=== PATIENT | female | born 1990 ===

== ENCOUNTER 2022-07-30 08:25 | Outpatient (CLI) | payer OTHER | END 2022-07-30 09:38 | disposition home or self-care (01) | LOC: PRENATAL 08:25 | PROVIDERS: ATTEND Obstetrics & Gynecology Maternal & Fetal Medicine | DX: O36.80X0 Pregnancy with inconclusive fetal viability, not applicable or unspecified (principal); O34.10 Maternal care for benign tumor of corpus uteri, unspecified trimester; Z3A.13 13 weeks gestation of pregnancy ==

== ENCOUNTER 2022-09-17 08:05 | Outpatient (CLI) | payer OTHER | END 2022-09-17 08:57 | disposition home or self-care (01) | LOC: PRENATAL 08:05 | PROVIDERS: ATTEND Obstetrics & Gynecology Maternal & Fetal Medicine | DX: O35.3XX0 Maternal care for (suspected) damage to fetus from viral disease in mother, not applicable or unspecified (principal); Z3A.20 20 weeks gestation of pregnancy ==

== ENCOUNTER 2023-01-18 20:55 | Outpatient (CLI) | payer OTHER | END 2023-01-18 22:05 | disposition home or self-care (01) | LOC: NST 20:55 | PROVIDERS: ATTEND Obstetrics & Gynecology | DX: Z34.83 Encounter for supervision of other normal pregnancy, third trimester (principal) ==

== ENCOUNTER 2023-01-26 03:16 | Inpatient (IN) | payer OTHER ==
[~2023-01-26] VITALS: Ht 152.4 cm; Wt 66.2 kg
[2023-01-26] MEDS ORDERED: PRENATAL + DHA1 EAC1 PO (03:56)
[2023-01-28] MEDS ORDERED: NAPR500T14 PO (09:04)
== END 2023-01-28 14:56 | disposition home or self-care (01) | DRG 768 ==
LOC: LDR 03:16 → OB/GYN 03:16
PROVIDERS: ADMIT Student in an Organized Health Care Education/Training Program; ATTEND Student in an Organized Health Care Education/Training Program
PROC: 10E0XZZ Delivery of Products of Conception, External Approach (ICD-10-PCS; principal; 2023-01-26)
PROC: 0DQR0ZZ Repair Anal Sphincter, Open Approach (ICD-10-PCS; 2023-01-26)
PROC: 10907ZC Drainage of Amniotic Fluid, Therapeutic from Products of Conception, Via Natural or Artificial Opening (ICD-10-PCS; 2023-01-26)
PROC: 4A1HXFZ Monitoring of Products of Conception, Cardiac Rhythm, External Approach (ICD-10-PCS; 2023-01-26)
DX: O70.20 Third degree perineal laceration during delivery, unspecified (principal); Z37.0 Single live birth; Z3A.39 39 weeks gestation of pregnancy